=== PATIENT | male | born 1975 | race African-American/Black ===

== ENCOUNTER 2016-12-03 16:59 | Emergency (ER) | payer OTHER ==
[2016-12-03 17:06] VITALS: BP 132/97
--- NOTE | 2016-12-03 17:30 | EDM.PDOC ---
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 floor and when he went to ring the mop he slip forward and developed back pain and left hip and right hip pain and became stiff and was unable to move around he was brought in for evaluation no previous history of back pain Onset: Today Onset Date: 12/03/16 Onset Time: 15:30 Duration: Hour(s): Location: Reports: Back Quality: Reports: Sharp, Throbbing Severity: Moderate Improves with: Reports: None Worsens with: Reports: None Context: Reports: Activity Associated Symptoms: Reports: No Other Symptoms 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 ED EXAM, GENERAL - Physical Exam Exam: Not Obtained (Patient is a 41-year-old who presented with lower back and right leg radiculopathy and he was bringing them up when he slipped but didn't hit the floor stood up and was unable to move was brought in for evaluation) Exam Limited By: No Limitations General Appearance: Alert, WD/WN Ears: Normal External Exam, Normal Canal, Hearing Grossly Normal, Normal TMs Ear Exam: Bilateral Ear: Auricle Normal, Canal Normal, TM normal Nose: Normal Inspection, Normal Mucosa, No Blood Throat/Mouth: Normal Inspection, Normal Lips, Normal Teeth, Normal Gums, Normal Oropharynx, Normal Voice, No Airway Compromise Head: Atraumatic, Normocephalic Neck: Normal Inspection, Supple, Non-Tender, Full Range of Motion Respiratory/Chest: No Respiratory Distress, Lungs Clear, Normal Breath Sounds, No Accessory Muscle Use, Chest Non-Tender Cardiovascular: Normal Peripheral Pulses, Regular Rate, Rhythm, No Edema, No Gallop, No JVD, No Murmur, No Rub GI/Abdominal: Normal Bowel Sounds, Soft, Non-Tender, No Organomegaly, No Distention, No Abnormal Bruit, No Mass Rectal (Males) Exam: Deferred Back Exam: Normal Inspection, Decreased Range of Motion, Muscle Spasm, Paraspinal Tenderness Extremities: Leg Pain (Right leg pain with 35 elevation unable to bear 100% of his weight) Neurological: Alert, Oriented, CN II-XII Intact Psychiatric: Normal Affect, Normal Mood Skin Exam: Warm, Dry, Intact, Normal Color, No Rash Course - Vital Signs Last Recorded V/S: Last Vital Signs Temp 98.3 F 12/03/16 17:05 Pulse 83 12/03/16 17:05 Resp 19 12/03/16 17:05 BP 132/97 H 12/03/16 17:05 Pulse Ox 100 12/03/16 17:05 - Orders/Labs/Meds Orders: Active Orders 24 hr Category Date Time Status Hip Min 2V or 3V Rt [CR] Stat Exams 12/03/16 17:36 Ordered Lumbar Spine 2 or 3V [CR] Stat Exams 12/03/16 17:35 Ordered Meds: Medications Discontinued Medications Generic Name Dose Route Start Last Admin Trade Name Butch PRN Reason Stop Dose Admin Ketorolac Tromethamine 60 mg 12/03/16 17:38 12/03/16 17:43 Toradol IM 12/03/16 17:39 60 mg ONETIME ONE Administration Departure - Departure Time of Disposition: 18:08 Disposition: Home, Self-Care 01 Condition: fair Clinical Impression: Radicular pain of right lower back - Discharge Information Prescriptions: Cyclobenzaprine [Flexeril] 10 mg PO TID #20 tablet Meloxicam [Mobic] 15 mg PO DAILY #20 tab Referrals: PCP,None [Primary Care Provider] - Forms: ED Department Discharge Additional Instructions: Patient will be sent home with Flexeril 10 mg 1 tablet 3 times a day Mobic 15 mg 1 tablet daily Patient to return to ER or clinic if not better - Problem List Review Problem List Initiated/Reviewed/Updated: Yes - My Orders Last 24 Hours: My Active Orders 12/03/16 17:35 Lumbar Spine 2 or 3V [CR] Stat 12/03/16 17:36 Hip Min 2V or 3V Rt [CR] Stat - Assessment/Plan Last 24 Hours: My Active Orders 12/03/16 17:35 Lumbar Spine 2 or 3V [CR] Stat 12/03/16 17:36 Hip Min 2V or 3V Rt [CR] Stat Assessment:: Lower back pain with right leg radiculopathy Plan: Patient was examined Toradol 60 IM given x-rays obtained reveal no fractures plan at this time we will send him home with Flexeril 10 mg 3 times a day for 10 days plus Mobic 15 mg 1 tablet daily for 20 days prescription sent to pharmacy
[2016-12-03] MEDS ORDERED: Ketorolac 60 MG/2 ML SDV IM ONE (17:38)
== END 2016-12-03 19:00 | disposition home or self-care (01) ==
LOC: EDBD 16:59 → LL.ED 16:59
DX: M54.16 Radiculopathy, lumbar region (principal); Z79.899 Other long term (current) drug therapy
CPT/HCPCS: 72100; 73502; 96372; 99283; J1885